=== PATIENT | female | born 1965 | race Native Hawaiian/Other Pacific Islander ===

== ENCOUNTER 2018-07-09 16:19 | Outpatient (CLI) | payer BC | END 2018-07-09 16:24 | disposition short-term general hospital (02) | LOC: AMB 16:19 | DX: S80.871A Other superficial bite, right lower leg, initial encounter (principal); W54.0XXA Bitten by dog, initial encounter; Y93.89 Activity, other specified; Y92.89 Other specified places as the place of occurrence of the external cause | CPT/HCPCS: A0425; A0427 ==

== ENCOUNTER 2018-07-09 16:26 | Emergency (ER) | payer BC ==
[~2018-07-09] VITALS: Ht 162.6 cm; Wt 78.0 kg
[2018-07-09 17:27] VITALS: BP 140/90; TEMP 98.1
== END 2018-07-09 17:28 | disposition home or self-care (01) ==
LOC: ED 16:26
DX: S81.851A Open bite, right lower leg, initial encounter (principal); W54.0XXA Bitten by dog, initial encounter; Y92.89 Other specified places as the place of occurrence of the external cause
CPT/HCPCS: 90471; 90715; 99282